=== PATIENT | female | born 1975 | race Caucasian/White ===

== ENCOUNTER 2019-09-25 07:10 | Emergency (ER) | payer OTHER ==
[~2019-09-25] VITALS: Ht 162.6 cm; Wt 54.0 kg
[2019-09-25] MEDS ORDERED: EPIPEN 2-P0.3 MG/0.3 IM (10:39)
[2019-09-25] MEDS ORDERED: PREDNISONE50 MG PO (10:39)
[2019-09-25 11:17] VITALS: BP 128/67
== END 2019-09-25 11:17 | disposition home or self-care (01) ==
LOC: ER 07:10
DX: R22.0 Localized swelling, mass and lump, head (principal); T45.0X5A Adverse effect of antiallergic and antiemetic drugs, initial encounter; F17.210 Nicotine dependence, cigarettes, uncomplicated; Z88.5 Allergy status to narcotic agent; Y92.89 Other specified places as the place of occurrence of the external cause